=== PATIENT | female | born 1950 | race Caucasian/White ===

== ENCOUNTER 2016-03-10 16:42 | Outpatient (CLI) | payer MEDICARE | END 2016-03-10 16:43 | disposition home or self-care (01) | DX: R42 Dizziness and giddiness (principal); R53.83 Other fatigue; N76.0 Acute vaginitis; R31.9 Hematuria, unspecified ==

== ENCOUNTER 2016-03-17 09:33 | Emergency (ER) | payer MEDICARE ==
[2016-03-17] MEDS ORDERED: FAMOTIDINE 20 MG TABLET PO STA (10:27)
[2016-03-17] MEDS ORDERED: LIDOCAINE VISCOUS 2% 15 ML UDC MM STA (10:27)
[2016-03-17] MEDS ORDERED: MAG HYDROX/AL HYDROX/SIMETH 30 ML UDC PO STA (10:27)
[2016-03-17] MEDS ORDERED: MAG HYDROX/AL HYDROX/SIMETH 30 ML UDC ONE (10:50)
[2016-03-17] MEDS ORDERED: LIDOCAINE VISCOUS 2% 15 ML UDC MM ONE (10:50)
[2016-03-17] MEDS ORDERED: FAMOTIDINE 20 MG TABLET ONE (10:50)
== END 2016-03-17 11:45 | disposition home or self-care (01) ==
DX: R07.9 Chest pain, unspecified (principal); K21.9 Gastro-esophageal reflux disease without esophagitis
CPT/HCPCS: 36415; 71020; 80053; 83690; 84484; 85025; 93005; 93010; 99283; 99284; A9270

== ENCOUNTER 2016-09-07 14:30 | Outpatient (CLI) | payer MEDICARE | END 2016-09-07 14:31 | disposition home or self-care (01) | LOC: LAB.R 14:30 | PROVIDERS: ATTEND Family Medicine | DX: N39.0 Urinary tract infection, site not specified (principal) | CPT/HCPCS: 87077; 87086 ==

== ENCOUNTER 2017-01-24 10:29 | Emergency (ER) | payer MEDICARE ==
[2017-01-24 11:09] LABS: BILIRUBIN,URINE NEGATIVE (NEGATIVE)
[2017-01-24 11:11] LABS: UA w/ MICROSCOPIC CHARGE YES
[2017-01-24 11:29] LABS: WBC,URINE >25 /HPF (0-5)
[2017-01-24 11:30] LABS: UR CULTURE IF IND INDICATED
[2017-01-24] MEDS ORDERED: cefTRIAXone 1 GM VIAL IM STA (11:41)
--- NOTE | 2017-01-24 11:44 | ED Physician Documentation ---
PD HPI FEMALE - Stated complaint Stated Complaint: FEMALE - Chief complaint Chief Complaint: Abd Pain - History obtained from History obtained from: Patient - History of Present Illness Timing - onset: How many days ago (3) Timing - duration: Days (3) Timing - details: Gradual onset, Still present Associated symptoms: Back pain, Dysuria, Urinary frequency Similar symptoms before: Diagnosis (UTI) Recently seen: Not recently seen - Additional information Additional information: 66-year-old female began to have some urinary symptoms about 3 days ago and she began to drink a lot of extra fluid. In the middle of the night last night she awoke with severe right flank pain radiating down into her groin. Pain lasted about an hour and when she went to the bathroom this morning she noticed some small black flecks in her urine. She is in here now for evaluation. She has not had vomiting she has not had fever. Review of Systems Constitutional: reports: Chills, Fatigue. denies: Fever Eyes: denies: Decreased vision Ears: denies: Ear pain Nose: denies: Congestion Throat: denies: Sore throat Cardiac: denies: Chest pain / pressure Respiratory: denies: Cough GI: reports: Abdominal Pain. denies: Nausea, Vomiting : reports: Dysuria, Frequency Skin: denies: Rash, Lesions Musculoskeletal: reports: Back pain. 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 : None HEENT: None Psych: None Musculoskeletal: None Derm: None - Past Surgical History Past Surgical History: Yes General: Colonoscopy Ortho: Other HEENT: Tonsil/Adenoidectomy - Present Medications Home Medications: Ambulatory Orders Medication Instructions Recorded Confirmed Fluconazole [Diflucan] 150 mg PO ONCE #1 tablet 01/24/17 cefUROXime axetil [Ceftin] 250 mg PO Q12H #14 tablet 01/24/17 - Allergies Allergies/Adverse Reactions: Allergies Allergy/AdvReac Type Severity Reaction Status Date / Time codeine Allergy Nausea Verified 08/08/15 12:27 latex Allergy Rash Verified 08/08/15 12:27 Sulfa (Sulfonamide Allergy Rash Verified 08/08/15 12:26 Antibiotics) sulfamethoxazole Allergy Rash Verified 08/08/15 12:27 [From ] trimethoprim [From ] Allergy Rash Verified 08/08/15 12:27 antihistamines Allergy Unknown Uncoded 09/05/15 17:15 - Social History Does the pt smoke?: No Smoking Status: Never smoker Does the pt drink ETOH?: No Does the pt have substance abuse?: No - Immunizations Immunizations are current?: Yes Immunizations: TDAP current <10years - POLST Patient has POLST: No PD ED PE NORMAL - Vitals Vital signs reviewed: Yes (hypertensive) - General General: Alert and oriented X 3, No acute distress, Well developed/nourished - Neck Neck: Supple, no meningeal sign, No bony TTP - Respiratory Respiratory: No respiratory distress - Abdomen Abdomen: Soft, Non tender - Back Back: No CVA TTP, No spinal TTP - Derm Derm: Normal color, Warm and dry, No rash - Extremities Extremities: No deformity, No edema - Neuro Neuro: No motor deficit, No sensory deficit Eye Opening: Spontaneous Motor: Obeys Commands Verbal: Oriented GCS Score: 15 - Psych Psych: Normal mood, Normal affect Results - Vitals Vitals: Vital Signs - 24 hr 01/24/17 01/24/17 10:33 11:46 Temperature 37.5 C 37.1 C Heart Rate 73 75 Respiratory 18 15 Rate Blood Pressure 175/75 H 172/66 H O2 Saturation 99 100 Oxygen O2 Source Room air - Labs Labs: Laboratory Tests 01/24/17 10:40 Urine Color LIGHT YELLOW Urine Clarity CLEAR Urine pH 6.0 Ur Specific [place] <=1.005 Urine Protein NEGATIVE Urine Glucose (UA) NEGATIVE Urine Ketones NEGATIVE Urine Occult Blood SMALL H Urine Nitrite NEGATIVE Urine Bilirubin NEGATIVE Urine Urobilinogen 0.2 (NORMAL) Ur Leukocyte Esterase MODERATE H Urine RBC 0-5 Urine WBC >25 H Ur Squamous Epith Cells RARE Squamous Urine Bacteria Moderate H Ur Microscopic Review INDICATED Urine Culture Comments INDICATED PD MEDICAL DECISION MAKING - ED course Complexity details: reviewed results, re-evaluated patient, considered differential, d/w patient ED course: 66-year-old female with urinary tract infection has a history consistent with passage of a kidney stone during the middle of the night. She is not having flank pain now she does not have flank tenderness now she is reluctant to take Cipro and she has had previous reaction to sulfa and she thinks she might of had reaction to Keflex as well. Here in the emergency department she is given an injection of Rocephin. Departure - Departure Disposition: 01 Home, Self Care Clinical Impression: Urinary tract infection Qualifiers: Urinary tract infection type: acute cystitis Hematuria presence: without hematuria Qualified Code(s): N30.00 - Acute cystitis without hematuria Condition: Stable Instructions: ED UTI Cystitis Female Follow-Up: Juani Chawla DO [Primary Care Provider] - Prescriptions: cefUROXime axetil [Ceftin] 250 mg PO Q12H #14 tablet Fluconazole [Diflucan] 150 mg PO ONCE #1 tablet
[2017-01-24 11:47] VITALS: BP 172/66
[2017-01-24] MEDS ORDERED: cefTRIAXone 1 GM VIAL ONE (11:51)
[2017-01-24] MEDS ORDERED: LIDOCAINE 1% 2 ML VIAL ONE (11:51)
== END 2017-01-24 12:09 | disposition home or self-care (01) ==
LOC: ED 10:29
DX: N30.00 Acute cystitis without hematuria (principal)
CPT/HCPCS: 81001; 81003; 87086; 96372; 99283

== ENCOUNTER 2017-05-15 08:00 | Outpatient (CLI) | payer MEDICARE | END 2017-05-15 08:01 | disposition home or self-care (01) | LOC: LAB.R 08:00 | PROVIDERS: ATTEND Family Medicine | DX: N39.0 Urinary tract infection, site not specified (principal) | CPT/HCPCS: 87086 ==

== ENCOUNTER 2017-08-31 12:40 | Outpatient (CLI) | payer MEDICARE ==
[2017-08-31] MEDS ORDERED: IOPAMIDOL-300 100 ML VIAL ONE (13:20)
[2017-08-31 13:36] LABS: CREATININE 0.8 mg/dL (0.4-1.0)
--- NOTE | 2017-08-31 15:03 | CT Report ---
Procedure Date: 08/31/2017 Accession Number: [id number] / [id number] Procedure: CT - IVP CPT Code: FULL RESULT: EXAM: IVP DATE: 08/31/2017 2:42 PM CLINICAL HISTORY: HEMATURIA COMPARISON: None. TECHNIQUE: Routine helical imaging was performed through the kidneys, ureters and bladder in the precontrast and postcontrast phases, using split bolus technique. IV Contrast: amt/type Reconstructions: Coronal and sagittal. In accordance with CT protocol optimization, one or more of the following dose reduction techniques were utilized for this exam: automated exposure control, adjustment of mA and/or KV based on patient size, or use of iterative reconstructive technique. FINDINGS: Lung Bases: Normal. Right Kidney/Ureter: No stones, hydronephrosis, or masses. Left Kidney/Ureter: No stones, hydronephrosis, or masses. Other Solid Organs: The liver, spleen, pancreas, gallbladder, and adrenal glands are unremarkable. The bile ducts are unremarkable. Peritoneal Cavity/Bowel: Normal. No free fluid, free air or adenopathy. No masses. Bowel loops are unremarkable. Pelvic Organs: No bladder stones, obstruction or masses. The visualized pelvic organs are unremarkable. Vasculature: Normal. Bones: Normal. Other: None. IMPRESSION: Normal CT IVP. No urinary tract masses, stones or obstruction. RADIA
[2017-08-31] MEDS ORDERED: IOPAMIDOL-300 100 ML VIAL IVP ONE (16:12)
== END 2017-08-31 12:41 | disposition home or self-care (01) ==
LOC: DI 12:40
PROVIDERS: ATTEND Family Medicine
DX: R31.9 Hematuria, unspecified (principal)
CPT/HCPCS: 36415; 74178; 82565; Q9967

== ENCOUNTER 2017-12-25 16:14 | Emergency (ER) | payer MEDICARE ==
[2017-12-25 16:44] LABS: BILIRUBIN,URINE NEGATIVE (NEGATIVE); GLUCOSE, URINE (UA) NEGATIVE (NEGATIVE); KETONES,URINE (UA) NEGATIVE (NEGATIVE); LEUKOCYTE ESTERASE, URINE SMALL (NEGATIVE); NITRITE,URINE NEGATIVE (NEGATIVE); OCCULT BLOOD,URINE SMALL (NEGATIVE); PROTEIN,URINE NEGATIVE (NEGATIVE); UROBILINOGEN,URINE 0.2 (NORMAL) E.U./dL (NORMAL)
[2017-12-25 16:45] LABS: CLARITY,URINE CLEAR (CLEAR)
[2017-12-25 16:50] LABS: BACTERIA,URINE None Seen /HPF (None Seen); SQUAMOUS EPITHELIAL CELL,UR NONE SEEN (<= Few)
--- NOTE | 2017-12-25 18:23 | ED Physician Documentation ---
PD HPI FEMALE - Stated complaint Stated Complaint: FEM - Chief complaint Chief Complaint: UTI - History obtained from History obtained from: Patient - History of Present Illness Timing - onset: Today Timing - duration: Days (1) Timing - details: Abrupt onset, Still present Associated symptoms: Dysuria, Urinary frequency. No: Fever, Vaginal bleeding, Vaginal discharge, Genital sore/lesion, Hematuria Contributing factors: Not sexually active Similar symptoms before: Diagnosis (UTIs) Recently seen: Not recently seen Review of Systems Constitutional: denies: Fever, Chills, Myalgias Nose: denies: Rhinorrhea / runny nose, Congestion Throat: denies: Sore throat Cardiac: denies: Chest pain / pressure, Palpitations Respiratory: denies: Dyspnea, Cough GI: reports: Abdominal Pain, Nausea, Constipation. denies: Vomiting, Diarrhea : reports: Dysuria, Frequency. 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: None : None, Frequency HEENT: None Psych: None Musculoskeletal: None Derm: None - Past Surgical History Past Surgical History: Yes General: Colonoscopy Ortho: Other HEENT: Tonsil/Adenoidectomy - Present Medications Home Medications: Ambulatory Orders Medication Instructions Recorded Confirmed Fluconazole [Diflucan] 150 mg PO ONCE #1 tablet 01/24/17 cefUROXime axetil [Ceftin] 250 mg PO Q12H #14 tablet 01/24/17 Ciprofloxacin HCl [Cipro] 250 mg PO BID #14 tablet 12/25/17 Fluconazole [Diflucan] 150 mg PO ONCE #1 tablet 12/25/17 HYDROcod/ACETAM 5/325 [[place] 5/325] 1 tab PO Q6H PRN #12 tablet 12/25/17 Naproxen 375 mg PO BID #20 tablet 12/25/17 Phenazopyridine [Pyridium] 200 mg PO TID PRN #15 tablet 12/25/17 - Allergies Allergies/Adverse Reactions: Allergies Allergy/AdvReac Type Severity Reaction Status Date / Time Cephalosporins Allergy Unknown Verified 12/25/17 16:26 codeine Allergy Nausea Verified 12/25/17 16:26 latex Allergy Rash Verified 12/25/17 16:26 Sulfa (Sulfonamide Allergy Rash Verified 12/25/17 16:26 Antibiotics) sulfamethoxazole Allergy Rash Verified 12/25/17 16:26 [From ] trimethoprim [From ] Allergy Rash Verified 12/25/17 16:26 antihistamines Allergy Unknown Uncoded 09/05/15 17:15 - Social History Does the pt smoke?: No Smoking Status: Never smoker Does the pt drink ETOH?: No Does the pt have substance abuse?: No - Immunizations Immunizations are current?: Yes Immunizations: TDAP current <10years - POLST Patient has POLST: No PD ED PE NORMAL - Vitals Vital signs reviewed: Yes - General General: Alert and oriented X 3, No acute distress, Well developed/nourished - Neck Neck: Supple, no meningeal sign, No adenopathy - Cardiac Cardiac: RRR, No murmur - Respiratory Respiratory: Clear bilaterally - Female Female : Deferred - Rectal Rectal: Deferred - Back Back: No CVA TTP - Derm Derm: Normal color, Warm and dry - Extremities Extremities: No deformity, No tenderness to palpate, No edema, No calf tenderness / cord Results - Vitals Vitals: Oxygen O2 Source Room air - Labs Labs: Microbiology 12/25/17 16:36 Urine Culture - Final Urine,Clean Catch Escherichia Coli Laboratory Tests 12/25/17 16:36 Urine Color YELLOW Urine Clarity CLEAR Urine pH 7.0 Ur Specific [place] <=1.005 Urine Protein NEGATIVE Urine Glucose (UA) NEGATIVE Urine Ketones NEGATIVE Urine Occult Blood SMALL H Urine Nitrite NEGATIVE Urine Bilirubin NEGATIVE Urine Urobilinogen 0.2 (NORMAL) Ur Leukocyte Esterase SMALL H Urine RBC 6-10 H Urine WBC >25 H Ur Squamous Epith Cells NONE SEEN Urine Bacteria None Seen Ur Microscopic Review INDICATED Urine Culture Comments INDICATED PD MEDICAL DECISION MAKING - ED course Complexity details: reviewed results (had had KUB CT with contrast in October which was normal. ), considered differential, d/w patient Departure - Departure Disposition: 01 Home, Self Care Clinical Impression: Cystitis Condition: Stable Record reviewed to determine appropriate education?: Yes Instructions: Urinary Tract Infecs Women Follow-Up: Juani Chawla DO [Primary Care Provider] - Prescriptions: Ciprofloxacin HCl [Cipro] 250 mg PO BID #14 tablet Fluconazole [Diflucan] 150 mg PO ONCE #1 tablet HYDROcod/ACETAM 5/325 [[place] 5/325] 1 tab PO Q6H PRN #12 tablet PRN Reason: Pain Naproxen 375 mg PO BID #20 tablet Phenazopyridine [Pyridium] 200 mg PO TID PRN #15 tablet PRN Reason: Pain Comments: The CT scan you recently had did not show any signs of stones polyps diverticula or other abnormalities. It appeared normal. I do not think we need to repeat any imaging today then as it be unlikely to have any of those problems now. We will treated as a urinary tract infection with the antibiotics and anti- inflammatories and medicine to decrease urinary symptoms. Recheck with your primary care if not improved over the next few days. Follow-up with the urologist as intended. Discharge Date/Time: 12/25/17 20:00
[2017-12-25] MEDS ORDERED: NAPROXEN 250 MG TABLET PO STA (18:51)
[2017-12-25] MEDS ORDERED: PHENAZOPYRIDINE 100 MG TABLET PO STA (18:51)
[2017-12-25] MEDS ORDERED: CIPROFLOXACIN 250 MG TABLET PO STA (18:52)
[2017-12-25 19:27] VITALS: BP 167/78
== END 2017-12-25 20:00 | disposition home or self-care (01) ==
LOC: ED 16:14
DX: N30.90 Cystitis, unspecified without hematuria (principal)
CPT/HCPCS: 81001; 87086; 87181; 99283; A9270; 81003

== ENCOUNTER 2018-06-04 13:42 | Emergency (ER) | payer MEDICARE ==
[2018-06-04 13:51] VITALS: BP 164/84
--- NOTE | 2018-06-04 14:09 | XRAY Report ---
Reason: chest pain Procedure Date: 06/04/2018 Accession Number: [id number] / [id number] Procedure: XR - Chest 1 View X-Ray CPT Code: 75736 FULL RESULT: EXAM: CHEST RADIOGRAPHY EXAM DATE: 06/04/2018 01:59 PM. CLINICAL HISTORY: Chest pain. COMPARISON: CHEST 2 VIEW PA/LAT 03/17/2016 10:33 AM. TECHNIQUE: 1 view. FINDINGS: Lungs/Pleura: No significant change. Lungs appear mildly hyperinflated. No consolidation or edema. Negative for pneumothorax. Mediastinum: Within exam limitations, the cardiomediastinal contour is normal. Other: None. IMPRESSION: Negative for an acute cardiopulmonary abnormality. RADIA
[2018-06-04 14:24] LABS: BASOPHILS % (AUTO) 0.6 %; EOSINOPHILS # (AUTO) 0.1 10^3/uL (0.0-0.7); EOSINOPHILS % (AUTO) 1.7 %; HGB - HEMOGLOBIN 12.7 g/dL (12.0-16.0); LYMPHOCYTES # (AUTO) 1.2 10^3/uL (1.5-3.5); LYMPHOCYTES % (AUTO) 23.4 %; MEAN CORPUSCULAR HEMOGLOBIN 32.5 pg (27.0-31.0); MEAN CORPUSCULAR HGB CONC 34.1 g/dL (32.0-36.0); MEAN CORPUSCULAR VOLUME 95.3 fL (81.0-99.0); MEAN PLATELET VOLUME 6.6 fL (7.9-10.8); MONOCYTES # (AUTO) 0.4 10^3/uL (0.0-1.0); MONOCYTES % (AUTO) 8.4 %; NEUTROPHILS # (AUTO) 3.4 10^3/uL (1.5-6.6); NEUTROPHILS % (AUTO) 65.9 %; PLT - PLATELET COUNT 290 10^3/uL (130-450); RED BLOOD COUNT 3.91 10^6/uL (4.20-5.40); RED CELL DISTRIBUTION WIDTH 13.1 % (12.0-15.0); WHITE BLOOD COUNT 5.2 x10^3/uL (4.8-10.8)
[2018-06-04 14:48] LABS: ALBUMIN 4.1 g/dL (3.2-5.5); ALBUMIN/GLOBULIN RATIO 1.4 (1.0-2.2); BILIRUBIN,TOTAL 0.5 mg/dL (0.2-1.0); CALCIUM 9.1 mg/dL (8.5-10.3); CREATININE 0.7 mg/dL (0.4-1.0); TOTAL PROTEIN 7.1 g/dL (6.7-8.2)
--- NOTE | 2018-06-04 16:02 | ED Physician Documentation ---
PD HPI CHEST PAIN - Stated complaint Stated Complaint: CHEST PAIN - Chief complaint Chief Complaint: Cardiac - History obtained from History obtained from: Patient - History of Present Illness Timing - onset: Other (This is a 67-year-old woman with long-standing chest symptoms. For years she is felt pounding when she walks and short of breath. She had a negative stress test for same 3 years ago. For the last 2 weeks she has had more pain especially after swallowing and better after burping. She tried sucralfate which was helpful. Currently not in any pain. There is no exertional component to that pain. 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 : None, Frequency HEENT: None Psych: None Musculoskeletal: None Derm: None - Past Surgical History Past Surgical History: Yes General: Colonoscopy Ortho: Other HEENT: Tonsil/Adenoidectomy - Present Medications Home Medications: Ambulatory Orders Medication Instructions Recorded Confirmed Fluconazole [Diflucan] 150 mg PO ONCE #1 tablet 01/24/17 cefUROXime axetil [Ceftin] 250 mg PO Q12H #14 tablet 01/24/17 Ciprofloxacin HCl [Cipro] 250 mg PO BID #14 tablet 12/25/17 Fluconazole [Diflucan] 150 mg PO ONCE #1 tablet 12/25/17 HYDROcod/ACETAM 5/325 [[place] 5/325] 1 tab PO Q6H PRN #12 tablet 12/25/17 Naproxen 375 mg PO BID #20 tablet 12/25/17 Phenazopyridine [Pyridium] 200 mg PO TID PRN #15 tablet 12/25/17 Omeprazole 20 mg PO DAILY #30 capsule. 06/04/18 - Allergies Allergies/Adverse Reactions: Allergies Allergy/AdvReac Type Severity Reaction Status Date / Time Cephalosporins Allergy Unknown Verified 06/04/18 13:50 codeine Allergy Nausea Verified 06/04/18 13:50 latex Allergy Rash Verified 06/04/18 13:50 Sulfa (Sulfonamide Allergy Rash Verified 06/04/18 13:50 Antibiotics) sulfamethoxazole Allergy Rash Verified 06/04/18 13:50 [From ] trimethoprim [From ] Allergy Rash Verified 06/04/18 13:50 antihistamines Allergy Unknown Uncoded 06/04/18 13:50 - Social History Does the pt smoke?: No Smoking Status: Never smoker Does the pt drink ETOH?: No Does the pt have substance abuse?: No - Immunizations Immunizations are current?: Yes Immunizations: TDAP current <10years - POLST Patient has POLST: No PD ED PE NORMAL - Vitals Vital signs reviewed: Yes - General General: Alert and oriented X 3, No acute distress - HEENT HEENT: PERRL, EOMI - Neck Neck: Supple, no meningeal sign, No bony TTP - Cardiac Cardiac: RRR, No murmur - Respiratory Respiratory: No respiratory distress, Clear bilaterally - Abdomen Abdomen: Non tender - Extremities Extremities: No edema, No calf tenderness / cord - Neuro Neuro: Alert and oriented X 3, Normal speech Results - Vitals Vitals: Vital Signs - 24 hr 06/04/18 13:47 Temperature 36.1 C L Heart Rate 75 Respiratory 20 Rate Blood Pressure 164/84 H O2 Saturation 99 Oxygen O2 Source Room air - EKG (time done) 1342 Rate: Rate (enter#) (61) Rhythm: NSR [place]: Normal Intervals: Normal ID QRS: Normal Ischemia: Normal ST segments Computer interpretation: Agree with computer - Labs Labs: Laboratory Tests 06/04/18 06/04/18 06/04/18 14:20 14:20 14:20 WBC 5.2 RBC 3.91 L Hgb 12.7 Hct 37.3 MCV 95.3 MCH 32.5 H MCHC 34.1 RDW 13.1 Plt Count 290 MPV 6.6 L Neut # (Auto) 3.4 Lymph # (Auto) 1.2 L [place] # (Auto) 0.4 Eos # (Auto) 0.1 Baso # (Auto) 0.0 Absolute Nucleated RBC 0.00 Nucleated RBC % 0.0 Sodium 137 Potassium 3.5 Chloride 100 L Carbon Dioxide 30 Anion Gap 7.0 BUN 8 Creatinine 0.7 Estimated GFR (MDRD) 83 L Glucose 104 H Calcium 9.1 Total Bilirubin 0.5 AST 24 ALT 18 Alkaline Phosphatase 61 Troponin I < 0.04 Total Protein 7.1 Albumin 4.1 Globulin 3.0 Albumin/Globulin Ratio 1.4 Lipase 48 - Rads (name of study) 1v chest Radiology: EMP read contemporaneously (normal) PD MEDICAL DECISION MAKING - ED course ED course: This is a 67-year-old woman with atypical chest pain with negative diagnostics and nonischemic EKG. The pattern suggests either anxiety or GI origin. She had a negative stress test for same already, but it has been ongoing for a few years so this deserves repeat as an outpatient and potentially an upper endoscopy as well. Departure - Departure Disposition: 01 Home, Self Care Clinical Impression: Chest pain Qualifiers: Chest pain type: precordial pain Qualified Code(s): R07.2 - Precordial pain Condition: Good Record reviewed to determine appropriate education?: Yes Instructions: ED Chest Pain Atypical Unkn Cause Prescriptions: Omeprazole 20 mg PO DAILY #30 capsule. Comments: As discussed, the history and diagnostic suggest the pain is not from your heart. That said return for recurrent chest pain or new symptoms. I would recommend following up with your doctor and discussing a expedited stress test, if that is negative an upper endoscopy.
== END 2018-06-04 16:30 | disposition home or self-care (01) ==
LOC: ED 13:42
DX: R07.2 Precordial pain (principal)
CPT/HCPCS: 36415; 71045; 80053; 83690; 84484; 85025; 93005; 99283; 99284

== ENCOUNTER 2018-06-06 08:00 | Outpatient (CLI) | payer MEDICARE ==
[2018-06-06 19:46] LABS: H. PYLORIS ANTIGEN STL NEGATIVE (Negative)
== END 2018-06-06 23:59 | disposition home or self-care (01) ==
LOC: LAB.R 08:00
PROVIDERS: ATTEND Family Medicine
DX: K21.9 Gastro-esophageal reflux disease without esophagitis (principal)
CPT/HCPCS: 87338

== ENCOUNTER 2019-06-07 09:12 | Emergency (ER) | payer MEDICARE, OTHER ==
[2019-06-07 09:23] VITALS: BP 149/68
--- NOTE | 2019-06-07 10:06 | ED Physician Documentation ---
PD HPI URI - Stated complaint Stated Complaint: SORE THROAT/EAR PX - Chief complaint Chief Complaint: Heent - History obtained from History obtained from: Patient - History of Present Illness Timing - onset: How many weeks ago (1) Timing duration: Weeks (1) Timing details: Gradual onset, Still present Associated symptoms: Ear pain, Nasal congestion, Sinus pain, Sore throat. No: Fever, Chills, Dry cough, Productive cough Contributing factors: No: Sick contact, Travel, Immunocompromised Similar symptoms before: Diagnosis (sinus infection last year) Review of Systems Constitutional: denies: Fever, Chills, Myalgias Eyes: denies: Loss of vision, Photophobia Ears: denies: Loss of hearing, Ear pain Nose: reports: Rhinorrhea / runny nose, Sinus pressure / pain (right maxillary) Throat: reports: Sore throat (for a week) Respiratory: denies: Cough Skin: denies: Rash, Lesions Neurologic: denies: Altered mental status, Headache PD PAST MEDICAL HISTORY - Past Medical History Cardiovascular: None Respiratory: None Endocrine/Autoimmune: None GI: None 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 : None, Frequency HEENT: None Psych: None Musculoskeletal: None Derm: None - Past Surgical History Past Surgical History: Yes General: Colonoscopy Ortho: Other HEENT: Tonsil/Adenoidectomy - Present Medications Home Medications: Ambulatory Orders Medication Instructions Recorded Confirmed Amoxicillin 500 mg PO TID #20 capsule 06/07/19 Cetirizine [ZyrTEC] 10 mg PO DAILY #15 tablet 06/07/19 Fluticasone [Flonase] 1 sprays VANESA DAILY #1 bottle 06/07/19 dexAMETHasone [Decadron] 4 mg PO DAILY #5 tablet 06/07/19 - Allergies Allergies/Adverse Reactions: Allergies Allergy/AdvReac Type Severity Reaction Status Date / Time Cephalosporins Allergy Unknown Verified 06/07/19 09:22 codeine Allergy Nausea Verified 06/07/19 09:22 latex Allergy Rash Verified 06/07/19 09:22 Sulfa (Sulfonamide Allergy Rash Verified 06/07/19 09:22 Antibiotics) sulfamethoxazole Allergy Rash Verified 06/07/19 09:22 [From ] trimethoprim [From ] Allergy Rash Verified 06/07/19 09:22 antihistamines Allergy Unknown Uncoded 06/07/19 09:22 - Social History Does the pt smoke?: No Smoking Status: Never smoker Does the pt drink ETOH?: No Does the pt have substance abuse?: No - Immunizations Immunizations are current?: Yes Immunizations: TDAP current <10years - POLST Patient has POLST: No PD ED PE NORMAL - Vitals Vital signs reviewed: Yes - General General: Alert and oriented X 3, No acute distress, Well developed/nourished - HEENT HEENT: EOMI (without nystagmus), Moist mucous membranes, Pharynx benign, Other (right maxillary tenderness to percussion. ). No: Ears normal (no redness, but has fluid bulging of TMs both sides. Canals are okay. 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 Consider sinusitis infection, versus allergies. ), d/w patient Departure - Departure Disposition: 01 Home, Self Care Clinical Impression: Sore throat Acute serous otitis media Qualifiers: Laterality: bilateral Recurrence: non-recurrent Qualified Code(s): H65.03 - Acute serous otitis media, bilateral Condition: Stable Record reviewed to determine appropriate education?: Yes Instructions: ED Otitis Media Serous Adult Prescriptions: Amoxicillin 500 mg PO TID #20 capsule Cetirizine [ZyrTEC] 10 mg PO DAILY #15 tablet dexAMETHasone [Decadron] 4 mg PO DAILY #5 tablet Fluticasone [Flonase] 1 sprays VANESA DAILY #1 bottle Comments: Stay well-hydrated. Consider using a fluticasone steroid nasal spray particularly on the right side daily for the next month or so. Short-term would be some oral steroids dexamethasone daily for 5 more days. It does look like some fluid behind the eardrums so there is some improper drainage through the eustachian tube. The steroid should help with this but I would also have you add cetirizine antihistamine daily for a week or so. Consider the possibility of a sinus infection reciprocating the new symptoms of the sore throat so we can go with the amoxicillin for a week in case of that. I would anticipate improvement over the next several days and resolution (except likely for the clogged sinus) within a week. Recheck if not improving in that timeframe. Discharge Date/Time: 06/07/19 11:07
[2019-06-07 10:16] LABS: RAPID STREP SCREEN Negative (Negative)
[2019-06-07] MEDS: DEXAMETHASONE 10 MG/ML VIAL PO STA (11:03)
[2019-06-07] MEDS: CHERRY SYRUP 10 ML UDC PO ONE (11:03)
[2019-06-07] MEDS: AMOXICILLIN 250 MG CAPSULE PO STA (11:03)
[2019-06-07] MEDS: CETIRIZINE 10 MG TABLET PO STA (11:03)
== END 2019-06-07 11:07 | disposition home or self-care (01) ==
LOC: ED 09:12
DX: J02.9 Acute pharyngitis, unspecified (principal); H65.03 Acute serous otitis media, bilateral
CPT/HCPCS: 87070; 87430; 99283; A9270

== ENCOUNTER 2019-06-11 11:00 | Outpatient (CLI) | payer MEDICARE, OTHER ==
--- NOTE | 2019-06-11 21:43 | XRAY Report ---
Reason: RIGHT FOOT PAIN Procedure Date: 06/11/2019 Accession Number: [id number] / [id number] Procedure: WCP - Foot 3 View RT CPT Code: Final Report FULL RESULT: EXAM: RIGHT FOOT RADIOGRAPHY EXAM DATE: 06/11/2019 11:26 AM. CLINICAL HISTORY: RIGHT FOOT PAIN. COMPARISON: FOOT 3 VIEW RT 08/08/2015 1:21 PM. TECHNIQUE: 3 views. FINDINGS: Bones: Normal. No fractures or bone lesions. Joints: Normal. No subluxations. Soft Tissues: Normal. No soft tissue swelling. IMPRESSION: Normal foot radiography. RADIA
== END 2019-06-11 23:59 | disposition home or self-care (01) ==
LOC: DI.WCP 11:00
PROVIDERS: ATTEND Family Medicine
DX: M79.671 Pain in right foot (principal)

== ENCOUNTER 2019-10-16 08:00 | Outpatient (CLI) | payer MEDICARE, OTHER | END 2019-10-16 23:59 | disposition home or self-care (01) | LOC: LAB.R 08:00 | PROVIDERS: ATTEND Nurse Practitioner Family | DX: R07.9 Chest pain, unspecified (principal); R53.83 Other fatigue; Z20.828 Contact with and (suspected) exposure to other viral communicable diseases ==

== ENCOUNTER 2020-02-19 12:40 | Outpatient (CLI) | payer MEDICARE, OTHER ==
--- NOTE | 2020-02-19 14:13 | CT Report ---
PROCEDURE: CHEST WO INDICATIONS: CHRONIC COUGH TECHNIQUE: Noncontrast 5 mm thick sections acquired from the pulmonary apices to the posterior costophrenic angl es. 7 mm thick coronal and sagittal MIP reformats were then acquired. For radiation dose reduction, the following was used: automated exposure control, adjustment of mA and/or kV according to patient size. COMPARISON: Chest radiographs dated 06/04/2018 and 03/17/2016. FINDINGS: Image quality: Excellent. Lungs and pleura: No acute air space opacities. Scattered atelectasis in posterior lateral peripher y of bilateral lung squires are seen. No pleural effusions or pneumothorax. Central and peripheral ai rways are patent and normal in caliber. Mediastinum: Heart size is normal. No pericardial effusion. 7 mm precarinal lymph node is seen. No mediastinal adenopathy by size criteria. Thoracic aorta and central pulmonary arteries are normal i n size. Esophagus is normal in caliber. No hiatal hernia. Bones and chest wall: No suspicious bony lesions. Mild degenerative endplate changes throughout tho racic spine is seen. No vertebral body compression fractures. No axillary or supraclavicular adenopa thy by size criteria. The thyroid is normal in size. Abdomen: Visualized upper abdominal solid organs and bowel loops appear normal in the absence of con trast. IMPRESSION: 1. Mild atelectasis scattered in periphery of bilateral lung squires. No acute airspace opacity. No pl eural effusion or pneumothorax. Airway is patent. 2. No mediastinal or hilar lymphadenopathy by size criteria. Reviewed by: Marky Landrum MD on 02/19/2020 2:12 PM PST Approved by: Marky Landrum MD on 02/19/2020 2:12 PM PST Station ID: [id number]
== END 2020-02-19 12:41 | disposition home or self-care (01) ==
LOC: DI 12:40
PROVIDERS: ATTEND Family Medicine
DX: J98.11 Atelectasis (principal); R05 Cough
CPT/HCPCS: 71250; 94010; 94729

== ENCOUNTER 2020-03-20 16:09 | Outpatient (CLI) | payer MEDICARE, OTHER ==
[2020-03-20 17:18] VITALS: BP 127/72
--- NOTE | 2020-03-20 17:18 | SLEEP CARE CONSULTATION ---
Information from patient questionnaire entered by Adonay Henry. I have reviewed and concur with the information entered by Adonay Henry. This document represents the service I personally performed and the decisions made by me, Michelle Conner ARNP. History of Present Illness Service Date and Time: 03/20/2020 1609 Reason for Visit: New patient Chief Complaint: reports: Snoring, Fatigue. denies: Unrefreshed sleep, Excessive daytime sleepiness, Observed pauses in breathing, Frequent awakenings at night Date of Onset: 1/2 decade Usual bedtime: after midnight - nite workor Time it takes to fall asleep: immediately Snores at night: Yes (twice in my life) Observed to quit breathing while asleep: No Sleeps alone due to snoring: No (not applicable) Number of times waking at night: 2 times Reasons for waking at night: reports: Snoring, Other (To take my puppy out). denies: Choking, Gasping for air Toss, Turn, or Twitch while sleeping: No Recalls having dreams: Yes Usually gets out of bed at: 9:30 Feels refreshed in the morning: Yes Morning headache: Yes (sometimes; 4 times in last 2 months) Sleepy or fatigued during the day: Yes Ever fallen asleep while driving: No Takes day naps: Yes (sometimes; 3 times in last month) Dreams during day naps: Yes Prior sleep studies: No Additional HPI information: I had the pleasure of seeing RICH MONSALVE today regarding the possibility of her having a sleep disorder. Her current complaint is fatigue. She states she feels like this all the time. She has snored a couple of times in her whole life. She has never been told that she pauses in breathing when sleeping. She feels like she has a lot of energy but has a hard time motivating in the morning because of her head. She states her sinuses are clogged and she has trouble with this in the morning. She feels she is looking through a fog. She also feels her eyes not focusing well is making her tired and thinks she just needs glasses. She does have a sister who has sleep apnea who is treated. - Parasomnia Symptoms Ever been unable to move upon waking from sleep: No Walks in sleep: No Talks in sleep: No Ever acted out dreams in sleep: No Ever felt weak in the knees when startled or emotional: No Bothered by creepy, crawly, restless sensations in legs: No Problems with memory or concentration: No Subjective Initial [place] Sleepiness Scale score: 3 (in 2020) Past Medical History Past Medical History: reports: Asthma (I have medicine available for asthma in April), GERD (lactose intolerant). 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 Patient is Single and lives in . Have you smoked in the past 12 months: No Alcohol use: No Caffeine use: Yes Caffeine amount and frequency: 1-3 cups when working Family History Family history of sleep disordered breathing: Yes (My sister) Family Hx Sleep Apnea: Sibling: Snoring, Sleep apnea - Treated Allergies and Home Medications Drug allergies reviewed: Yes (Cephalosporins, codiene, latex) Home medication list reviewed: Yes Allergy and home medication list: vitamins Review of Systems Weight gain over past 5 years: 4 Cardiovascular: reports: chest pain (with lactose). denies: high blood pressure Respiratory: reports: sputum production, chronic cough Neurological: denies: headaches Psychiatric: denies: anxiety, depression Ear/Nose/Throat: reports: nasal congestion, dry mouth/throat (better with keep mouth closed at night with a chin strap), tonsillectomy, wisdom teeth removed Physical Exam Blood Pressure: 127/72 Cuff size: wrist Heart Rate: 58 O2 Saturation: 97 Height: 5 ft 6 in Weight: 126 lb Body Mass Index: 20.3 BMI Classification: Healthy weight Neck circumference: 13 (inches) Nostrils: patent to airflow Turbinates: swollen Septum: midline Mouth and throat: narrow oropharynx Soft palate: long Uvula: long Uvula visualization: 100% Mallampati Class I Tongue: normal in size Tonsils: absent bilaterally Heart: regular rate and rhythm Lungs: clear bilaterally Impression and Plan 1. Suspected Obstructive Sleep Apnea-Hypopnea Syndrome, as suggested by a history of irregular snoring, morning headaches, excessive tiredness during the day and fatigue. I reviewed with the patient that a narrow oropharynx and obesity are common predisposing factors for obstructive sleep apnea-hypopnea syndrome. I recommend proceeding to polysomnography to confirm the diagnosis and to assess severity. If the patient has significant sleep disordered breathing, a manual CPAP titration study will also be performed to find the optimal treatment pressure. I informed the patient of what the sleep studies involve and after some discussion, obtained agreement to proceed. The pathophysiology of obs tructive sleep apnea-hypopnea syndrome was discussed with the patient and health risks of cardiovascular and cerebrovascular disease if not treated. 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 Patient agreed to plan. * Schedule polysomnography +- manual CPAP titration study and return in 1-2 weeks after the study to discuss result and initiate therapy. * Avoid long distance driving or driving when feeling sleepy. * Avoid alcohol, sedative and muscle relaxant around bedtime. * Review instructions provided by trained office staff on how to prepare for the sleep study. * Return for follow-up after sleep study completed. Visit Type: In Office Time Spent with Patient (minutes): 34 Provider Statement: I spent 100% of the Face to Face Visit with the patient with greater than 50% spent counseling the patient and coordination of care.
== END 2020-03-20 16:10 | disposition home or self-care (01) ==
LOC: SC 16:09
PROVIDERS: ATTEND Nurse Practitioner Family
DX: G47.10 Hypersomnia, unspecified (principal); R51.9 Headache, unspecified; R53.83 Other fatigue; R06.83 Snoring
CPT/HCPCS: 99203; G0463; 99212

== ENCOUNTER 2020-04-22 08:00 | Outpatient (CLI) | payer MEDICARE, OTHER ==
[2020-04-30 14:21] LABS: H. PYLORIS ANTIGEN STL NEGATIVE (Negative)
== END 2020-04-22 23:59 | disposition home or self-care (01) ==
LOC: LAB.R 08:00
PROVIDERS: ATTEND Family Medicine
DX: K21.9 Gastro-esophageal reflux disease without esophagitis (principal); R10.13 Epigastric pain
CPT/HCPCS: 82274; 87338

== ENCOUNTER 2020-09-20 19:48 | Emergency (ER) | payer MEDICARE, OTHER ==
[2020-09-20 19:59] VITALS: BP 168/85
[2020-09-20] MEDS ORDERED: BUFFERED LIDOCAINE 10 ML SYRINGE SUBQ STA (20:07)
[2020-09-20] MEDS ORDERED: AMOX/CLAV 875 MG/125 MG TABLET PO STA (20:48)
--- NOTE | 2020-09-20 20:51 | ED Physician Documentation ---
PD HPI UPPER EXT INJURY - Stated complaint Stated Complaint: R HAND LAC - Chief complaint Chief Complaint: Laceration - History obtained from History obtained from: Patient - Additonal information Additional information: She is playing fetch with her dog and the dog's tooth accidentally lacerated her on the right wrist. Both she and the dog are up-to-date on immunizations including tetanus for the patient. 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, Frequency HEENT: None Psych: None Musculoskeletal: None Derm: None - Past Surgical History Past Surgical History: Yes General: Colonoscopy Ortho: Other HEENT: Tonsil/Adenoidectomy - Present Medications Home Medications: Ambulatory Orders Medication Instructions Recorded Confirmed Amoxicillin 500 mg PO TID #20 capsule 06/07/19 Cetirizine [ZyrTEC] 10 mg PO DAILY #15 tablet 06/07/19 Fluticasone [Flonase] 1 sprays VANESA DAILY #1 bottle 06/07/19 dexAMETHasone [Decadron] 4 mg PO DAILY #5 tablet 06/07/19 Amox/Clav 875/125 [Augmentin] 1 each PO Q12H #10 tablet 09/20/20 - Allergies Allergies/Adverse Reactions: Allergies Allergy/AdvReac Type Severity Reaction Status Date / Time Cephalosporins Allergy Unknown Verified 09/20/20 19:56 codeine Allergy Nausea Verified 09/20/20 19:56 latex Allergy Rash Verified 09/20/20 19:56 Sulfa (Sulfonamide Allergy Rash Verified 09/20/20 19:56 Antibiotics) sulfamethoxazole Allergy Rash Verified 09/20/20 19:56 [From Septra] trimethoprim [From Octra] Allergy Rash Verified 09/20/20 19:56 antihistamines Allergy Unknown Uncoded 09/20/20 19:56 - Social History Does the pt smoke?: No Smoking Status: Never smoker Does the pt drink ETOH?: No Does the pt have substance abuse?: No - Immunizations Immunizations are current?: Yes Immunizations: TDAP current <10years - POLST Patient has POLST: No PD ED PE NORMAL - Vitals Vital signs reviewed: Yes - General General: Alert and oriented X 3, No acute distress - Extremities Extremities: Other (1.5 cm laceration just into subcutaneous fat but is quite gaping on the radial side of the anterior right wrist.) - Neuro Neuro: Alert and oriented X 3, Normal speech Results - Vitals Vitals: Vital Signs - 24 hr 09/20/20 19:56 Temperature 36.5 C Heart Rate 77 Respiratory 16 Rate Blood Pressure 168/85 H O2 Saturation 100 Oxygen O2 Source Room air Procedures - Laceration (location) Right wrist Length in cm: 1.5 Wound type: Linear, Into subcut fat Neurovascular status: Sensory intact, Motor intact, Vascular intact Tendon involvement: Tendon intact Anesthesia: Lidocaine 1%, With bicarb Wound preparation: Irrigated copiously NS Skin layer closure: Nylon, Size #-0 - enter number (5-0), Sutures - enter # (3) Other: Patient tolerated well, No complications, Neurovascular intact, Tetanus UTD Departure - Departure Disposition: 01 Home, Self Care Clinical Impression: Laceration Condition: Good Record reviewed to determine appropriate education?: Yes Instructions: ED Laceration Ext Sutr Stap Tape Prescriptions: Amox/Clav 875/125 [Augmentin] 1 each PO Q12H #10 tablet Comments: Come back for any signs of infection which would include: Redness, swelling, drainage, increased pain, or fevers. You can wash it soap and water. Keep it covered and moist with bacitracin ointment which is available over the counter; avoid neosporin. Follow-up with your physician in About 14 days for suture removal.
== END 2020-09-20 21:03 | disposition home or self-care (01) ==
LOC: ED 19:48
DX: S61.511A Laceration without foreign body of right wrist, initial encounter (principal); W54.0XXA Bitten by dog, initial encounter; Y93.89 Activity, other specified
CPT/HCPCS: 12001; 99282; A9270

== ENCOUNTER 2020-09-30 20:23 | Emergency (ER) | payer MEDICARE, OTHER ==
--- NOTE | 2020-09-30 20:31 | ED Physician Documentation ---
PD HPI LOWER EXT INJURY - Stated complaint Stated Complaint: STEPPED ON NAIL - Chief complaint Chief Complaint: Wound - History obtained from History obtained from: Patient - History of Present Illness PD HPI LOW EXT INJURY LOCATION: Left Type of injury: Puncture wound Where injury occurred: Home Timing - onset: Today (tonight) Timing - details: Abrupt onset Recently seen: Not recently seen - Additional information Additional information: stepped on nail at home tonight, causing puncture to left foot. she was wearing flip-flops at the time. she is UTD on tetanus (within 5 years). Review of Systems Musculoskeletal: reports: Extremity pain. 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, Frequency HEENT: None Psych: None Musculoskeletal: None Derm: None - Past Surgical History Past Surgical History: Yes General: Colonoscopy Ortho: Other HEENT: Tonsil/Adenoidectomy - Present Medications Home Medications: Ambulatory Orders Medication Instructions Recorded Confirmed Fluticasone [Flonase] 1 sprays VANESA DAILY #1 bottle 06/07/19 09/30/20 Amox/Clav 875/125 [Augmentin] 1 each PO Q12H #10 tablet 09/20/20 - Allergies Allergies/Adverse Reactions: Allergies Allergy/AdvReac Type Severity Reaction Status Date / Time Cephalosporins Allergy Unknown Verified 09/30/20 20:25 codeine Allergy Nausea Verified 09/30/20 20:25 latex Allergy Rash Verified 09/30/20 20:25 Sulfa (Sulfonamide Allergy Rash Verified 09/30/20 20:25 Antibiotics) sulfamethoxazole Allergy Rash Verified 09/30/20 20:25 [From Septra] trimethoprim [From ] Allergy Rash Verified 09/30/20 20:25 antihistamines Allergy Unknown Uncoded 09/30/20 20:25 - Social History Does the pt smoke?: No Smoking Status: Never smoker Does the pt drink ETOH?: No Does the pt have substance abuse?: No - Immunizations Immunizations are current?: Yes Immunizations: TDAP current <10years - POLST Patient has POLST: No PD ED PE NORMAL - Vitals Vital signs reviewed: Yes - General General: Alert and oriented X 3, No acute distress PD ED PE EXPANDED - Extremities Extremities: Other (2mm puncture wound to plantar surface left foot without TTP or visible FB) Results - Vitals Vitals: Oxygen O2 Source Room air PD MEDICAL DECISION MAKING - ED course Complexity details: considered differential, d/w patient ED course: presents with puncture wound to left foot due to stepping on a jackie nail at home. she is UTD on tetanus immunization. she is not diabetic. we discussed option for prophylaxis against bacterial infection with oral antibiotics, and that a fluoroquinolone would be the antibiotic of choice (cipro or levaquin). Patient says she had tendonopathy with one of these antibiotics in the past and does not want either of these antibiotics. uptodate does not recommend routine antibiotic prophylaxis for this scenario but reasonable to offer antibiotics as prophylaxis. Given patient's unremarkable exam at this time (small puncture wound that is not TTP, no erythema, no elements of h+P to suggest retained FB), and patient's specific request to not be given fluoroquinolones due to h/o tendonopathy, and considering her reported allergy to other antibiotics such as sulfa and cephalosporins, we agreed on no antibiotics at this time with plan to return if she develops signs/symptoms of infection such as increasing pain, redness, fever, discharge Departure - Departure Disposition: 01 Home, Self Care Clinical Impression: Puncture wound of foot, left Condition: Good Instructions: ED Wound Puncture Foot Follow-Up: Juani Chawla DO [Primary Care Provider] - Discharge Date/Time: 09/30/20 21:04
[2020-09-30 21:04] VITALS: BP 147/72
== END 2020-09-30 21:04 | disposition home or self-care (01) ==
LOC: ED 20:23
DX: S91.332A Puncture wound without foreign body, left foot, initial encounter (principal); W45.0XXA Nail entering through skin, initial encounter
CPT/HCPCS: 99281; 99282

== ENCOUNTER 2021-06-23 08:00 | Outpatient (CLI) | payer MEDICARE | END 2021-06-23 08:01 | disposition home or self-care (01) | LOC: LAB 08:00 | PROVIDERS: ATTEND Family Medicine | DX: N39.0 Urinary tract infection, site not specified (principal) | CPT/HCPCS: 87086; 87181 ==

== ENCOUNTER 2021-07-26 14:42 | Emergency (ER) | payer MEDICARE ==
[2021-07-26 15:20] VITALS: BP 132/76
[2021-07-26 15:44] LABS: BILIRUBIN,URINE NEGATIVE (NEGATIVE); GLUCOSE, URINE (UA) NEGATIVE (NEGATIVE); KETONES,URINE (UA) NEGATIVE (NEGATIVE); LEUKOCYTE ESTERASE, URINE SMALL (NEGATIVE); NITRITE,URINE NEGATIVE (NEGATIVE); OCCULT BLOOD,URINE TRACE-INTA (NEGATIVE); PH,URINE 6.5 PH (5.0-7.5); PROTEIN,URINE NEGATIVE (NEGATIVE); UROBILINOGEN,URINE 0.2 (NORMAL) E.U./dL (NORMAL)
[2021-07-26 15:46] LABS: CLARITY,URINE CLEAR (CLEAR)
[2021-07-26 15:53] LABS: BACTERIA,URINE Rare /HPF (None Seen); RBC,URINE 0-5 /HPF (0-5); SQUAMOUS EPITHELIAL CELL,UR NONE SEEN (<= Few)
[2021-07-26] MEDS ORDERED: NITROFURANTOIN MACRO 100 MG CAPSULE PO STA (16:47)
--- NOTE | 2021-07-26 17:15 | ED Physician Documentation ---
History of Present Illness - Stated complaint Stated Complaint: FEMALE - Chief complaint Chief Complaint: UTI - History obtained from History obtained from: Patient - Additonal information Additional information: Patient comes emergency department chief complaint of dysuria which has been going on for the last several days. She has a history of UTIs and last one was about 2 months ago. She states she did have her felt that she got fully better after her 5-day course of antibiotics for the last 1, and is concerned that she has continued to have a low-lying urinary tract infections whole time. She denies any today fevers or chills. She has had some back pain. No nausea or vomiting. No other complaints at this time. Review of Systems Ten Systems: 10 systems reviewed and negative Constitutional: reports: Reviewed and negative Eyes: reports: Reviewed and negative Ears: reports: Reviewed and negative Nose: reports: Reviewed and negative Throat: reports: Reviewed and negative Cardiac: reports: Reviewed and negative Respiratory: reports: Reviewed and negative GI: reports: Reviewed and negative : reports: Dysuria Skin: reports: Reviewed and negative Musculoskeletal: reports: Reviewed and negative Neurologic: reports: Reviewed and negative Psychiatric: reports: Reviewed and negative Endocrine: reports: Reviewed and negative Immunocompromised: reports: Reviewed and negative PD PAST MEDICAL HISTORY - Past Medical History Past Medical History: No Cardiovascular: None Respiratory: None Neuro: None Endocrine/Autoimmune: None GI: None 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 : 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, Frequency HEENT: None Psych: None Musculoskeletal: None Derm: None - Past Surgical History Past Surgical History: Yes General: Colonoscopy Ortho: Other HEENT: Tonsil/Adenoidectomy - Present Medications Home Medications: Ambulatory Orders Medication Instructions Recorded Confirmed Nitrofurantoin [Macrobid] 100 mg PO BID #14 07/26/21 - Allergies Allergies/Adverse Reactions: Allergies Allergy/AdvReac Type Severity Reaction Status Date / Time Cephalosporins Allergy Unknown Verified 07/26/21 15:20 codeine Allergy Nausea Verified 07/26/21 15:20 latex Allergy Rash Verified 07/26/21 15:20 Sulfa (Sulfonamide Allergy Rash Verified 07/26/21 15:20 Antibiotics) sulfamethoxazole Allergy Rash Verified 07/26/21 15:20 [From ] trimethoprim [From ] Allergy Rash Verified 07/26/21 15:20 antihistamines Allergy Unknown Uncoded 07/26/21 15:20 - Social History Does the pt smoke?: No Smoking Status: Never smoker Does the pt drink ETOH?: No Does the pt have substance abuse?: No - Immunizations Immunizations are current?: Yes Immunizations: TDAP current <10years - POLST Patient has POLST: No PD ED PE NORMAL - Vitals Vital signs reviewed: Yes - General General: Alert and oriented X 3, No acute distress, Well developed/nourished - HEENT HEENT: Atraumatic, PERRL, EOMI, Moist mucous membranes - Neck Neck: Supple, no meningeal sign - Cardiac Cardiac: RRR, No murmur, Strong equal pulses - Respiratory Respiratory: No respiratory distress, Clear bilaterally - Abdomen Abdomen: Soft, Non tender, Non distended - Derm Derm: Normal color, Warm and dry, No rash - Extremities Extremities: No deformity, No edema - Neuro Neuro: Alert and oriented X 3 - Psych Psych: Normal mood, Normal affect Results - Vitals Vitals: Vital Signs - 24 hr 07/26/21 15:17 Temperature 36.8 C Heart Rate 78 Respiratory 14 Rate Blood Pressure 132/76 H O2 Saturation 99 Oxygen O2 Source Room air - Labs Labs: Laboratory Tests 07/26/21 15:35 Urine Color STRAW Urine Clarity CLEAR Urine pH 6.5 Ur Specific [place] <=1.005 Urine Protein NEGATIVE Urine Glucose (UA) NEGATIVE Urine Ketones NEGATIVE Urine Occult Blood TRACE-INTA Urine Nitrite NEGATIVE Urine Bilirubin NEGATIVE Urine Urobilinogen 0.2 (NORMAL) Ur Leukocyte Esterase SMALL H Urine RBC 0-5 Urine WBC 6-10 H Ur Squamous Epith Cells NONE SEEN Urine Bacteria Rare Ur Microscopic Review INDICATED Urine Culture Comments INDICATED PD MEDICAL DECISION MAKING - ED course Complexity details: reviewed results, re-evaluated patient, considered differential, d/w patient ED course: Urinalysis showed evidence of urinary tract infection. Patient was started on Macrobid for this. We have discussed the usual indications for return. Departure - Departure Disposition: 01 Home, Self Care Clinical Impression: Urinary tract infection Qualifiers: Urinary tract infection type: acute cystitis Hematuria presence: without hematuria Qualified Code(s): N30.00 - Acute cystitis without hematuria Condition: Stable Instructions: ED UTI Cystitis Female Prescriptions: Nitrofurantoin [Macrobid] 100 mg PO BID #14 Discharge Date/Time: 07/26/21 17:19
--- NOTE | 2021-07-29 05:52 | ED Physician Documentation ---
ED Addendum - Addendum Addendum: 07/29/21 05:51 Urine culture results reviewed. Patient was discharged home on Macrobid and organism (Proteus mirabilis) is resistant to this antibiotic. Patient is allergic to cephalosporins and sulfa medications. We will send a prescription for ciprofloxacin to her listed pharmacy of [facility].We will request charge nurse to call patient in the morning to notify of change of antibiotic.
== END 2021-07-26 17:19 | disposition home or self-care (01) ==
LOC: ED 14:42
DX: N30.00 Acute cystitis without hematuria (principal); B96.4 Proteus (mirabilis) (morganii) as the cause of diseases classified elsewhere; Z16.29 Resistance to other single specified antibiotic
CPT/HCPCS: 81001; 87077; 87086; 87181; 99282; 99283; A9270; 81003